=== PATIENT | female | born 1945 | race Caucasian/White ===

== ENCOUNTER 2022-09-21 15:23 | Emergency (ER) | payer MEDICARE, OTHER ==
[~2022-09-21] VITALS: Ht 167.6 cm; Wt 61.2 kg
[2022-09-21] MEDS ORDERED: BACITRACIN ZINC 0.9GM TP ONE ×2 (16:53→17:00)
[2022-09-21] MEDS ORDERED: TETANUS/DIPHTHERIA TOX ADULT 0.5 ML SYR ONE (16:53)
[2022-09-21] MEDS ORDERED: TETANUS/DIPHTHERIA TOX ADULT 0.5 ML SYR IM ONE (17:00)
== END 2022-09-21 18:19 | disposition home or self-care (01) ==
LOC: FSED 16:03
DX: S00.83XA Contusion of other part of head, initial encounter (principal); S00.31XA Abrasion of nose, initial encounter; S60.222A Contusion of left hand, initial encounter; S60.221A Contusion of right hand, initial encounter; S80.01XA Contusion of right knee, initial encounter; W01.0XXA Fall on same level from slipping, tripping and stumbling without subsequent striking against object, initial encounter; Y93.01 Activity, walking, marching and hiking; Y92.89 Other specified places as the place of occurrence of the external cause; I10 Essential (primary) hypertension; Z85.3 Personal history of malignant neoplasm of breast
CPT/HCPCS: 70450; 70486; 90471; 90714; 99283